=== PATIENT | female | born 1985 | race Caucasian/White ===

== ENCOUNTER 2024-02-06 10:50 | Emergency (ER) | payer BC, SELFPAY ==
[2024-02-06 10:50] VITALS: BMI 28.8
[2024-02-06 11:15] VITALS: BP 99/51
[2024-02-06 12:49] VITALS: BP 105/74
--- NOTE | 2024-02-06 13:36 | ED.GENMED ---
History of Present Illness
General
Chief Complaint: Musculo-Skeletal Complaint
Source: patient
Exam Limitations: none
Time Seen by Provider: 02/06/24 13:03
Nursing documentation reviewed up to this point in time: agreed with
History of Present Illness
History of Present Illness:
38 y/o F with no pmh
here with L ankle pain/swelling/bruising after falling off a stool approx 3 feet high last night while not wearing shoes
felt inversion injury L ankle
able to minimally weight bear
no other injuries
nothing for pain
Past History
Past History
ED Past Medical History: None
ED Past Surgical History: None
Social History
Tobacco: Non-smoker
Alcohol: None
Drug: None
Review of Systems
Review of Systems
Allergies reviewed?: Yes
All Other Systems: Not applicable
Phy Exam
Physical Exam
Physical Exam:
GENERAL: Alert , in no apparent distress, comfortable at rest
HEAD: NCAT
CV: 2+ DP PULSES B/L
NEUROLOGICAL: Alert and oriented, no focal neuro deficits, , 5/5 strength, sensation intact, ambulation slight limp left leg
SKIN: Warm and dry,
MUSCULOSKELETAL: mild STS left ankle with tenderness to malleolus laterally; pain with inversion and eversion;
no tenderness at the base of the 5th metatarsal, no other foot tenderness
no knee/prox tib/fib tenderness, full painless ROM;
PSYCH: Normal and appropriate interaction.
Course
Orders/Labs/Results
Orders:
Orders
02/06/24 11:18
Ankle, left 3 view CR [CR Ankle - Left Min 3 Views ] Urgent
Comment:
Reason For Exam: pain/trauma
CR Foot - Left Min 3 Views Urgent
Comment:
Reason For Exam: pain/trauma
Vital Signs
Initial and Last Documented VS:
Initial Vital Signs
Temp Pulse Resp BP Pulse Ox
37.0 C 78 18 99/51 98
02/06/24 11:15 02/06/24 11:15 02/06/24 11:15 02/06/24 11:15 02/06/24 11:15
Last Documented Vital Signs
Temp Pulse Resp BP Pulse Ox
37.0 C 69 18 105/74 99
02/06/24 11:15 02/06/24 12:49 02/06/24 12:49 02/06/24 12:49 02/06/24 12:49
MDM/Problems Addressed
Differential Diagnosis Includes:
ankle sprain, ankle fracture
MDM/Problems Addressed:
38 y/o F inversion injury L ankle from stepping off a stool 3 feet high
bruising and pain laterally
nv intact
tender L lateral mall
no 5th metataral tenderness
xrays indep reviewed and neg for fx
boot and crutches for sprain
f/u ortho
*Critical Care Note
Total Time (30-74mins, 75-104mins- exclusive of procedures): Not Applicable
ED Attending Note
-
Portions of this chart may have been created with voice recognition software.� Occasional wrong word or��sound alike� substitutions may have occurred due to the inherent limitations of voice recognition software.
Discharge Plan
Departure
Patient Disposition: Home (Routine Discharge)
Date of Disposition: 02/06/24
Time of Disposition: 13:42
Patient with high blood pressure during this ER visit?: No
Covid-19: Not Applicable
Discharge Problem:
Left ankle sprain
Instructions: Sprain (DC)
Prescriptions:
No Action
vit-iron fum-folic ac 1 EACH tablet
1 ea PO DAILY
oxycodone-acetaminophen 5 MG/325 MG tablet
1 tab PO Q4HPRN PRN (Reason: moderate pain) Qty: 16 0RF
oxycodone-acetaminophen 5 MG/325 MG tablet
2 tab PO Q6HPRN PRN (Reason: severe pain) Qty: 0 0RF
ibuprofen 600 MG tablet
600 mg PO Q4HPRN PRN (Reason: moderate pain/cramps) Qty: 30 0RF
simethicone [Gas Relief 80 (simethicone)] 80 MG tablet,chewable
80 mg PO TIDPRN PRN (Reason: flatulence) Qty: 30 0RF
sennosides-docusate sodium 1 TABLET tablet
1 tab PO DAILYPRN PRN (Reason: constipation) Qty: 30 0RF
Referrals:
Heron Ewing DO [Family Provider] -
Activity Restrictions/Additional Instructions:
Your x-rays were negative, you likely sprained your ankle. You can either use the Hayes wrap and crutches and avoid weightbearing for a day or 2 and then put the walking boot on or you can use a walking boot now if you feel like it helps you. Ice
off-and-on. Take the boot off when you sleep. Take ibuprofen for pain as tolerated. Follow-up with orthopedist if you are still having pain in a week
Interventions
Interventions:
*Risk Screen - Suicide Last Done: 02/06/24 11:17
*General Assessment Last Done: 02/06/24 11:18
*Neglect/Abuse Screening Last Done: 02/06/24 11:17
ED- Fall Risk Assessment Last Done: 02/06/24 12:48
*Nursing Disposition Last Done: 02/06/24 13:42
ED-Musculoskeletal Assessment Last Done: 02/06/24 12:48
Discharge Date and Time
Discharge Date/Time: 02/06/24 13:43
Print Language: GEORGIAN
== END 2024-02-06 13:43 | disposition home or self-care (01) ==
LOC: EMR 10:50
PROVIDERS: EMERGENCY PHYSICIAN Emergency Medicine; FAMILY PHYSICIAN Family Medicine
DX: S93.402A Sprain of unspecified ligament of left ankle, initial encounter (principal); W08.XXXA Fall from other furniture, initial encounter
CPT/HCPCS: 99283; 73610; 73630

== ENCOUNTER → 2024-07-14 08:09 | Outpatient (REF) | payer BC, SELFPAY | LOC: WDC 08:09 | PROVIDERS: ATTENDING PHYSICIAN Family Medicine | DX: Z12.31 Encounter for screening mammogram for malignant neoplasm of breast (principal) | CPT/HCPCS: 77063; 77067 ==

== ENCOUNTER → 2024-07-18 11:34 | Outpatient (REF) | payer BC, SELFPAY | LOC: RAD 11:34 | PROVIDERS: ATTENDING PHYSICIAN Nurse Practitioner Family; FAMILY PHYSICIAN Family Medicine | DX: N92.6 Irregular menstruation, unspecified (principal) | CPT/HCPCS: 76830; 76856 ==